=== PATIENT | female | born 1960 | race Caucasian/White ===

== ENCOUNTER 2025-06-27 08:04 | Emergency (ER) | payer OTHER, SELFPAY ==
--- NOTE | 2025-06-27 08:19 | ED_ITS ---
HPI - URI/Sore Throat General Chief Complaint: Shortness of Breath/Dyspnea Stated Complaint: Flu, SOB , 9 days, seen at [facility] Time Seen by Provider: 06/27/25 08:14 History of Present Illness HPI Narrative: Patient here with . Both are sick with the same symptoms whole family they state have cough cold congestion sore throat stuffy nose. Patient and went to [facility], a couple of weeks ago and return sick and got the rest of the family sick. Patient seen at [facility] emergency department locally 9 days ago and prescribed Tessalon Perle without success. Had chest x-ray and nasal swab done. Patient denies any history heart attack strokes or diabetes. Does not smoke. No previous lung problems. Patient sounds very nasally congested and has a dry cough. Related Data Previous Rx's ?Medication ?Instructions ?Recorded albuterol sulfate 90 mcg/actuation 2 inhalation inhala tion QID PRN 06/27/25 aerosol inhaler (Ventolin HFA) shortness of breath or wheezing #6.7 grams methylprednisolone 4 mg tablets in See Rx Instructions PO .COMPLEX 06/27/25 a dose pack (Medrol (Cristian)) #21 ea Allergies Allergy/AdvReac Type Severity Reaction Status Date / Time No Known Drug Allergies Allergy Verified 06/27/25 08:20 Review of Systems Review of Systems Narrative: GENERAL: Positive chills, fatigue, malaise, fever, negative sweats. HEENT: Negative sinus pain, ear pain, positive nasal congestion, sore throat RESPIRATORY: Negative dyspnea, positive cough CARDIOVASCULAR: Negative chest pain, palpitations GASTROINTESTINAL: Negative vomiting, nausea, abdominal pain : Negative dysuria, frequency, hematuria MUSCULOSKELETAL: Negative muscle or bony pain SKIN: Negative rash, skin lesions NEUROLOGIC: Negative weakness, numbness ROS Unobtainable: All systems reviewed & are unremarkable except as noted in HPI and below Patient History Social History Smoking Status: Never smoker Exam Narrative Exam Narrative: GENERAL: in no distress, not toxic not dyspneic HEAD: Normocephalic. EYES: Pupils equal round ENT: Mucous membranes moist. Erythematous edematous bilateral nasal mucosa NECK: Trachea midline. No stridor CARDIOVASCULAR: Regular rate and rhythm RESPIRATORY: Clear to auscultation. Breath sounds equal bilaterally. No wheezes, rales, or rhonchi. However, has dry coarse cough. Speaking full sentences comfortably. Has slightly hoarse voice GASTROINTESTINAL: Abdomen soft, non-tender BACK: No flank tenderness. EXTREMITIES: No gross deformities. NEURO: AOx4. Clear speech SKIN: Warm and dry PSYCH: Not anxious, is cooperative Initial Vital Signs Initial Vital Signs: Vital Signs Temperature 98.1 F 06/27/25 08:20 Pulse Rate 97 H 06/27/25 08:20 Respiratory Rate 24 06/27/25 08:20 Blood Pressure 137/66 06/27/25 08:20 Pulse Oximetry 95 06/27/25 08:20 Oxygen Delivery Method Room Air 06/27/25 08:20 Course Orders Ordered: ED Orders 06/27/25 08:17 XR chest 1V Stat 06/27/25 08:30 Respiratory Panel (Film Array) Stat 06/27/25 09:28 Strep Grp A by PCR Rapid Stat Discontinued Medications Albuterol (Albuterol Hfa Prepack) 1 box MISC DIRECTED ONE Stop: 06/27/25 08:18 Prednisone (Prednisone 20 Mg Tablet) 40 mg PO NOW ONE Stop: 06/27/25 08:18 Last Admin: 06/27/25 08:39 Dose: 40 mg Documented By: EB Vital Signs Vital signs: Vital Signs - 8 hr 06/27/25 08:20 06/27/25 10:33 Temperature 98.1 F 98.7 F Pulse Rate 97 H Respiratory Rate 24 Blood Pressure 137/66 139/64 Pulse Oximetry 95 Oxygen Delivery Method Room Air Room Air MDM - URI/Sore Throat Lab Data Labs: Lab Results 06/27/25 06/27/25 Range/Units 08:30 09:28 Chlamy pneumoniae PCR Not detected (Not Detect) Adenovirus (PCR) Not detected (Not Detect) B. pertussis DNA (PCR) Not detected (Not Detect) B.parapertussis DNA PCR Not detected (Not Detecte) Coronavirus OC43 (PCR) Not detected (Not Detect) Coronavirus HKU1 (PCR) Not detected (Not Detect) Coronavirus 229E (PCR) Not detected (Not Detect) SARS-CoV-2 (PCR) Not detected (Not Detecte) Coronavirus NL63 (PCR) Not detected (Not Detect) Human Metapneumovir PCR Not detected (Not Detect) Influenza A (H3) PCR Detected H (Not Detect) Influenza Type B (PCR) Not detected (Not Detect) M. pneumoniae (PCR) Not detected (Not Detect) Parainfluenza 1 (PCR) Not detected (Not Detect) Parainfluenza 2 (PCR) Not detected (Not Detect) Parainfluenza 3 (PCR) Not detected (Not Detect) Parainfluenza 4 (PCR) Not detected (Not Detect) RSV (PCR) Not detected (Not Detect) Entero/Rhino (PCR) Not detected (Not Detect) Group A Strep (PCR) Negative (Negative) Imaging Data Chest x-ray: Radiologist's Impression: [address] [address] XRay Report Signed Patient: Niki Villalta MR#: [id number] : 1960 Acct:[id number] Age/Sex: 65 / F Date of Service: 06/27/25 Loc: ED Accession Number: [id number] Procedure: XR chest 1V Ordering Provider: Modesto Emanuel MD PROCEDURE: XR CHEST 1V INDICATIONS: Cough/short of breath TECHNIQUE: One view of the chest was acquired. COMPARISON: None. FINDINGS: Surgical changes and devices: None. Lungs and pleura: Lungs are clear. No pleural effusions or pneumothorax. Mediastinum: Mediastinal contours appear normal. Heart size is normal. Bones and chest wall: No suspicious bony lesions. Overlying soft tissues appear unremarkable. IMPRESSION: No acute cardiopulmonary abnormality is seen. Dictated by: Darinel Santo M.D. on 06/27/2025 at 9:03 Approved by: Darinel Santo M.D. on 06/27/2025 at 9:06 [facility] Narrative Medical decision making narrative: Patient here with . Both are sick with the same symptoms whole family they state have cough cold congestion sore throat stuffy nose. Patient and went to [facility], a couple of weeks ago and return sick and got the rest of the family sick. [facility] and prescribed Tessalon Perle without success. Had chest x-ray and nasal swab done. Patient denies any history heart attack strokes or diabetes. Does not smoke. No previous lung problems. Patient sounds very nasally congested and has a dry cough. MDM After history and exam, respiratory strep screen chest x-ray breathing treatment prednisone Differential considered: Includes but not limited to pneumonia bronchitis rhino virus COVID influenza Medical records reviewed: No recent visit here for this complaint Lab Test results independently reviewed as above. Pertinent findings: Positive influenza, strep screen negative Imaging studies independently reviewed: Chest x-ray no acute finding Consultations: None indicated at this time Re-evaluations: 10:00 a.m.. Updated patient has been results. Infection with influenza. No antibiotics indicated. No Tamiflu, outside window 48 hours. Patient has no worsening symptoms. Return precautions reviewed. Airway intact. They desire discharge home. Reviewed with her inhaler use 2 puffs every 4 hours as needed for cough. Continue steroid pack tomorrow. Follow up with primary care this week Discussion: Appropriate for discharge home. Exam is reassuring. Return precautions reviewed. Not requiring supplemental oxygen. Diagnosis: Influenza, bronchitis Discharge Plan Departure Patient Disposition: Home Clinical Impression: Influenza, Bronchitis Instructions: DI for Acute Bronchitis, DI for Influenza -- Adult Activity Restrictions/Additional Instructions: You have infection with influenza. No antibiotics indicated at this time for viral infections. You do have bronchitis. No pneumonia seen on x-ray. No Tamiflu at this time as symptoms have been going on greater than 48 hours. Continue steroid back tomorrow. Use inhaler 2 puffs every 4 hours as needed for cough. Please see your family doctor's week for re-evaluation. The flu is contagious so please wear mask. Prescriptions: New methylprednisolone [Medrol (Cristian)] 4 mg tablets,dose pack See Rx Instructions .ROUTE .COMPLEX Qty: 21 0RF Rx Instructions: orally per package directions albuterol sulfate [Ventolin HFA] 90 mcg/actuation HFA aerosol inhaler 2 inhalation INHALATION QID PRN (Reason: shortness of breath or wheezing) Qty: 6.7 0RF Referrals: Uzair Saravia MD [Primary Care Provider, Medical] Stand Alone Forms: Patient Portal/API
[2025-06-27 08:20] VITALS: BP 137/66; PULSE 97; RESP 24; TEMP 36.7; O2SAT 95; BMI 25.7
[2025-06-27 09:40] LABS: Strep Grp A by PCR Rapid Negative (Negative)
[2025-06-27 09:56] LABS: Coronavirus NL 63 Not Detected (Not Detect); SARS- CoV-2 Not Detected (Not Detecte)
[2025-06-27 10:33] VITALS: BP 139/64; TEMP 37.1
== END 2025-06-27 10:33 | disposition home or self-care (01) ==
PROVIDERS: Emergency Provider Emergency Medicine; PCP Family Medicine
DX: J10.1 Influenza due to other identified influenza virus with other respiratory manifestations (principal)
CPT/HCPCS: 71045; 87633; 87651; 99283